=== PATIENT | female | born 1945 | race Caucasian/White ===

== ENCOUNTER 2017-08-29 07:04 | Day surgery (SDC) | payer OTHER, MEDICARE ==
[~2017-08-29] VITALS: Ht 158.8 cm; Wt 80.0 kg
[~2017-08-29 07:04] MED LIST: DEXILANT30 MG PO; LEVOTHYROXINE100 MCG PO; LORAZEPAM0.5 MG PO; LOSARTAN POTASS50 MG PO; METOPROLOL SUCC25 MG PO; SIMVASTATIN40 MG PO; VITAMIN D32000 UNI1 PO
== END 2017-08-29 08:55 | disposition home or self-care (01) ==
LOC: CATH 07:04
DX: Z45.2 Encounter for adjustment and management of vascular access device (principal); I87.2 Venous insufficiency (chronic) (peripheral); C50.912 Malignant neoplasm of unspecified site of left female breast; I10 Essential (primary) hypertension; E78.00 Pure hypercholesterolemia, unspecified; Z87.891 Personal history of nicotine dependence
CPT/HCPCS: C1751; C1894; J1644; J2250; J3010; S0020

== ENCOUNTER 2018-03-11 06:12 | Day surgery (SDC) | payer OTHER, MEDICARE ==
[~2018-03-11] VITALS: Ht 158.8 cm; Wt 72.1 kg
[~2018-03-11 06:12] MED LIST changes: +COZAAR25 MG PO; +FULL SPECTRUM0.8 MG PO; +REFRESH TEARS15 ML BOTH EYES
[2018-03-11 07:00] VITALS: BP 118/52
[2018-03-11] MEDS ORDERED: HYDROCODON-ACE1 EAC7 PO (14:29)
[2018-03-11 15:10] VITALS: BP 120/60
[2018-03-11 16:20] VITALS: BP 130/60
== END 2018-03-11 16:35 | disposition home or self-care (01) ==
LOC: NUC 06:12 → SDC 06:12
DX: C50.812 Malignant neoplasm of overlapping sites of left female breast (principal); Z17.0 Estrogen receptor positive status [ER+]; K21.9 Gastro-esophageal reflux disease without esophagitis; E03.9 Hypothyroidism, unspecified; I10 Essential (primary) hypertension; I44.7 Left bundle-branch block, unspecified; Z88.0 Allergy status to penicillin; Z87.891 Personal history of nicotine dependence; Z88.2 Allergy status to sulfonamides
CPT/HCPCS: 78195; 78999; 85730; 88305; 88307; 88331; A9541; J1100; J1170; J2405; J3010; S0020

== ENCOUNTER → 2018-04-25 | Outpatient (CLI) | payer OTHER, MEDICARE ==
[~2018-04-25] MED LIST changes: +HYDROCODON-ACE1 EAC7 PO; +PROBIOTIC1 EAC1 PO
== END | disposition home or self-care (01) ==
LOC: AMB 09:30
PROC: 02PYX3Z Removal of Infusion Device from Great Vessel, External Approach (ICD-10-PCS; principal; 2018-04-25)
PROC: 0JPT3WZ Removal of Totally Implantable Vascular Access Device from Trunk Subcutaneous Tissue and Fascia, Percutaneous Approach (ICD-10-PCS; principal; 2018-04-25)
DX: Z45.2 Encounter for adjustment and management of vascular access device (principal); I87.8 Other specified disorders of veins; Z92.21 Personal history of antineoplastic chemotherapy